=== PATIENT | female | born 1995 | race Caucasian/White ===

== ENCOUNTER → 2016-04-21 | Outpatient (CLI) | payer BC, OTHER ==
[~2016-04-21] MED LIST: AMPH10TA2 PO; CHOL20007 PO; LAMO25TA PO; LEVO1IUD VAGRING; LORA-741 PO; QUET5TAB PO; SERT1TAB68 PO; SERT50TA PO; TRAZ50TA35 PO
== END | disposition home or self-care (01) ==
LOC: C.PAPS 14:38
PROVIDERS: ATTEND Obstetrics & Gynecology
DX: Z01.419 Encounter for gynecological examination (general) (routine) without abnormal findings (principal)

== ENCOUNTER → 2016-04-25 | Outpatient (CLI) | payer OTHER | END | disposition home or self-care (01) | LOC: C.LAB1850 14:04 | PROVIDERS: ATTEND Psychiatry & Neurology Child & Adolescent Psychiatry | DX: F33.1 Major depressive disorder, recurrent, moderate (principal) ==

== ENCOUNTER 2016-05-05 13:34 | Inpatient (IN) | payer OTHER ==
[~2016-05-05] VITALS: Ht 165.1 cm; Wt 52.0 kg
[2016-05-05 14:10] LABS: URINE APPEARANCE CLEAR (CLEAR); URINE BILIRUBIN NEG (NEG); URINE COLOR YELLOW; URINE NITRITE NEG (NEG); URINE PH 5.5 (4.5-7.5); URINE SPECIFIC GRAVITY 1.012 (1.000-1.030); UROBILINOGEN NEG (NEG)
[2016-05-05 14:24] LABS: MANUAL MICROSCOPIC REQUIRED? NO; REVIEW REQ? NO
[2016-05-05 14:35] LABS: HEMATOCRIT 40.4 % (37-47); MEAN CORPUSCULAR HEMOGLOBIN 30.6 pg (25-34); MEAN CORPUSCULAR HGB CONC 35.6 g/dl (32-36); MEAN PLATELET VOLUME 9.9 fL (7.4-10.4); PLATELET COUNT 278 K/uL (130-400); WHITE BLOOD COUNT 6.15 K/uL (4.8-10.8)
[2016-05-05] MEDS ORDERED: LORA-741 PO (14:39)
[2016-05-05] MEDS ORDERED: TRAZ50TA35 PO (14:39)
[2016-05-05] MEDS ORDERED: AMPH10TA2 PO (14:39)
[2016-05-05] MEDS ORDERED: LAMO25TA PO (14:39)
[2016-05-05] MEDS ORDERED: CHOL20007 PO (14:39)
[2016-05-05] MEDS ORDERED: LEVO1IUD VAGRING (14:39)
[2016-05-05] MEDS ORDERED: SERT50TA PO (14:39)
[2016-05-05 14:43] LABS: BENZODIAZEPINE, URINE NEG (NEG); COCAINE,URINE NEG (NEG); PHENCYCLIDINE, URINE NEG (NEG)
[2016-05-05 14:52] LABS: BUN/CREATININE RATIO 15.2 (10-20); CALCIUM 9.3 mg/dl (8.5-10.1); CREATININE 0.94 mg/dl (0.60-1.20); POTASSIUM 3.7 mmol/L (3.5-5.1)
[2016-05-05 14:57] LABS: ACETAMINOPHEN < 2 ug/ml (10-30)
[2016-05-05 15:02] LABS: THYROID STIMULATING HORMONE 0.85 uIu/ml (0.300-4.500)
[2016-05-05] MEDS ORDERED: hydrOXYzine HCL 25 MG TAB PO PRN ×2 (15:45)
[2016-05-05] MEDS ORDERED: SODIUM CHLORIDE 0.65% NA SOLN 45 ML (OCEAN) PRN (15:45)
[2016-05-05] MEDS ORDERED: BISMUTH SUBSALICYLATE PER ML OMNICELL CHARGE PO PRN (15:45)
[2016-05-05] MEDS ORDERED: ALUMINUM/MAGNESIUM SUSP 30 ML UDC PO PRN (15:45)
[2016-05-05] MEDS ORDERED: TRAZODONE HCL 50 MG TAB PO PRN (15:45)
[2016-05-05] MEDS ORDERED: ACETAMINOPHEN 325 MG TAB PO PRN (15:45)
[2016-05-05] MEDS ORDERED: MAGNESIUM HYDROXIDE SUSP 30 ML UDC PO PRN (15:45)
[2016-05-05 16:19] VITALS: O2SAT 98
[2016-05-05 17:32] VITALS: BP 114/77; PULSE 76; TEMP 36.8; BMI 19.1
[2016-05-05 17:42] VITALS: BP 114/77; PULSE 76; TEMP 36.8; Ht 165.1 cm; Wt 52.0 kg
[2016-05-05] MEDS: AMPHETAMINE ASP/SULF/DEXTRAMPH 10 MG TAB PO SCH (20:44)
--- NOTE | 2016-05-05 21:15 | EMERGENCY ROOM VISIT NOTE ---
History Report prepared by Ashwin: Rola Vera Under the Supervision of: Dr. Floyd Teixeira M.D. First contact with patient: 13:42 Chief Complaint: MENTAL HEALTH EVALUATION Stated Complaint: BIPOLAR DISORDER BREAK DOWN History of Present Illness The patient is a 20 year old female who presents to the Emergency Room with complaints of worsening bipolar depression symptoms. She reports she would like to be seen inpatient at a mental health facility. She was seen inpatient about 4 years ago for her history of bipolar depression, anxiety and ADHD. The patient takes daily Lamictal, Zoloft and Adderall. She underwent some medication changes, approximately 4 weeks ago, and states she had to wean herself off Zoloft and start taking Lamictal. She reports she has been very sad and crying for the past 24 hours, stating "I don't think the medications are working". She admits to "wanting to ", but denies any intention of hurting herself. 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 Her parents are supportive of her wanting to be seen inpatient and her father is researching possible places where she could be treated. She denies any current physical complaints. She denies any chance of being . She admits to ETOH and Marijuana use but states she has not smoked Marijuana or drank alcohol since . Source of History: patient Onset: BRANCH CHIEF Position: other (global) Timing: worsening Modifying Factors (Worsening): other (recent medication changes) Note: The patient denies any current physical complaints. Review of Systems See HPI for pertinent positives & negatives. A total of 10 systems reviewed and were otherwise negative. Past Medical & Surgical Medical Problems: (1) ADHD (attention deficit hyperactivity disorder) (2) Anxiety (3) Bipolar depression Social History Smoking Status: Never Smoker Alcohol Use: occasionally Drug Use: marijuana Marital Status: single Housing Status: lives alone Occupation Status: [employer] student Current/Historical Medications Scheduled Amphetamine-Dextroamphetamine 10MG (Adderall 10MG), 10 MG PO BID Cholecalciferol (Vitamin D3), 1 TAB PO DAILY Lamotrigine (Lamictal), 50 MG PO QPM Sertraline (Zoloft), 50 MG PO DAILY Scheduled PRN Lorazepam (Ativan), 0.5 MG PO Q6H PRN for Anxiety Trazodone Hcl (Trazodone), 50 MG PO UD PRN for Sleep Miscellaneous Medications Levonorgestrel (Iud) (Eli), 1 VAGRING Allergies Coded Allergies: Penicillins (Verified Allergy, Intermediate, rash, 05/05/16) Physical Exam Vital Signs Date Time Temp Pulse Resp B/P Pulse Ox O2 Delivery O2 Flow Rate FiO2 05/05/16 13:37 37.0 92 18 126/80 100 Room Air Physical Exam Constitutional: Vital signs reviewed. Eyes: Pupils are equal round reactive to light. Conjunctiva are noninjected. ENT: Pharynx is clear without erythema or exudate. Mucous membranes are moist. Neck supple without meningeal signs. Respiratory: Clear to auscultation bilaterally. Breath sounds are equal bilaterally. Cardiovascular: Regular rate and rhythm. No rubs or gallops. GI: Soft, nondistended and nontender. Bowel sounds are present. Musculoskeletal: No peripheral edema. No lacerations. Integumentary: No cyanosis. Neurological: The patient is awake and alert. No focal deficits. Psychiatric: Depressed affect, tearful and anxious. Medical Decision & Procedures Laboratory Results 05/05/16 14:20 05/05/16 14:20 Test 05/05/16 14:00 05/05/16 14:20 Urine Color YELLOW Urine Appearance CLEAR (CLEAR) Urine pH 5.5 (4.5-7.5) Urine Specific [place] 1.012 (1.000-1.030) Urine Protein NEG (NEG) Urine Glucose (UA) NEG (NEG) Urine Ketones NEG (NEG) Urine Occult Blood NEG (NEG) Urine Nitrite NEG (NEG) Urine Bilirubin NEG (NEG) Urine Urobilinogen NEG (NEG) Urine Leukocyte Esterase NEG (NEG) Urine Test NEG (NEG) Urine Opiates Screen NEG (NEG) Urine Methadone, Qualitative NEG (NEG) Urine Barbiturates NEG (NEG) Urine Phencyclidine (PCP) Level NEG (NEG) Ur Amphetamine/Methamphetamine NEG (NEG) MDMA (Ecstasy) Screen NEG (NEG) Urine Benzodiazepines Screen NEG (NEG) Urine Cocaine Metabolite NEG (NEG) Urine Marijuana (THC) NEG (NEG) Red Blood Count 4.70 M/uL (4.2-5.4) Mean Corpuscular Volume 86.0 fL (80-100) Mean Corpuscular Hemoglobin 30.6 pg (25-34) Mean Corpuscular Hemoglobin Concent 35.6 g/dl (32-36) RDW Standard Deviation 39.2 fL (36.4-46.3) RDW Coefficient of Variation 12.4 % (11.5-14.5) Mean Platelet Volume 9.9 fL (7.4-10.4) Anion Gap 9.0 mmol/L (3-11) Est Creatinine Clear Calc Drug Dose 77.7 ml/min Estimated GFR () 100.5 Estimated GFR (Non- 86.7 BUN/Creatinine Ratio 15.2 (10-20) Calcium Level 9.3 mg/dl (8.5-10.1) Total Bilirubin 0.7 mg/dl (0.2-1) Direct Bilirubin 0.2 mg/dl (0-0.2) Aspartate Amino Transf (AST/SGOT) 19 U/L (15-37) Alanine Aminotransferase (ALT/SGPT) 17 U/L (12-78) Alkaline Phosphatase 74 U/L (45-117) Total Protein 7.5 gm/dl (6.4-8.2) Albumin 4.4 gm/dl (3.4-5.0) Thyroid Stimulating Hormone (TSH) 0.850 uIu/ml (0.300-4.500) Salicylates Level < 1.7 mg/dl (2.8-20) Acetaminophen Level < 2 ug/ml (10-30) Ethyl Alcohol mg/dL < 3.0 mg/dl (0-3) Laboratory results as reviewed by me. ED Course 1345: The patient was evaluated in room A5. A complete history and physical exam was performed. 1509: Labs have come back on the patient. I informed our psychiatric case management associate she is ready to be evaluated by Psychiatry. 1555: I discussed the patients case with Haydee, [address] [place] [address] Psychiatric Care Floor. The patient will be further evaluated. Medical Decision This is a 20-year-old female who presents for mental health evaluation. I did perform a limited focused review of portions of the patient's old chart on the electronic medical record. The patient has had no recent pertinent visits to this hospital. I did evaluate the patient as noted above. The patient is presenting with depression and suicidal ideation. I did order and review the patient's blood work as noted in the electronic medical record. I did medically clear the patient. She was evaluated by mental health. She was accepted to 3 S. inpatient psychiatric unit. Consults Time Called: 1550 [facility] Returned Call: [phone] I discussed the patients case with Haydee [address] [place] [address] Psychiatric Care Floor. The patient will be further evaluated. Impression Primary Impression: Mood disorder Additional Impression: Suicidal ideation Scribe Attestation The scribe's documentation has been prepared under my direct and personally reviewed by me in its entirety. I confirm that the note above accurately reflects all work, treatment, procedures, and medical decision making performed by me. Departure Information Dispostion Mental Health Acute Care (The patient will be further evaluated by [address] [place] [address] 's Psychiatric Care Floor) Referrals No Doctor, Assigned (PCP) Patient Instructions My [facility] Problem Qualifiers
[2016-05-06 06:59] VITALS: BP_SYST 89; BP_SYST 95; BP_DIAS 54; BP_DIAS 59; PULSE 71; PULSE 99; TEMP 37.1
[2016-05-06] MEDS: AMPHETAMINE ASP/SULF/DEXTRAMPH 10 MG TAB PO SCH (09:00)
[2016-05-06] MEDS: SERTRALINE HCL 50 MG TAB PO SCH (09:09)
[2016-05-06] MEDS: CHOLECALCIFEROL 1000 INTER.UNIT TAB PO SCH (09:09)
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
--- NOTE | 2016-05-06 12:48 | Psychiatric History & Physical ---
History Identifying Data Juana Faith is a 20-year-old female who currently lives alone in [place]. Juana Faith was admitted on a 201 voluntary commitment. The patient is admitted from the emergency department after a therapy intake at [facility] was cancelled. Chief Complaint "I need to feel more stable". History of Present Illness Juana relates not feeling in control of her emotions. She was started on Lamictal 3 weeks ago for a relatively new diagnosis of bipolar disorder. She has been maintained on Zoloft (doses vary by season) since a 2013 inpatient hospitalization. She feels this fall she waited too long to restart it and then tried adding lightbox therapy. Her outpatient psychiatrist started tapering Zoloft during early Lamictal trial and she continued to feel more emotional. Juana describes her baseline mood as "blah" in that she feels rather numb and low energy. This alternates with periods of time of a few hours where she feels hypomania--like waking up in the middle of the night day of admission to clean/rearrange drawers for a few hours. She denies a particular stressor in that she like school and her clinical work. She denies periods of euphoria or impulsivity other than purchasing a tablet on [employer]. She has a stable relationship with a boyfriend of 8 months who attends college in [place] and maintains a job at [employer]. She has had brief periods of irritability where she got into an argument with a girl and almost threw her laptop at her. This is very unusual for the patient. She has had suicidal thoughts, mainly passive thoughts of wishing she weren't alive in the 3 days leading up to admission and did contact her outpatient psychiatrist who resumed Zoloft. Sleep has varied a bit, appetite is baseline, concentration good when she takes Adderall. She only takes it on school days and there is no history of misuse or diversion. It does cause some mild increase in anxiety but benefits outweigh side effects for her attention. Juana can feel hopeless at times and seems like there are some conflicts related to blended family issues. Juana denies violence to self or others in the past 6 months. Past Psychiatric History Current OP Treatment: psychiatrist (Dr. Ramirez), therapist ([facility] intake pending, would prefer a different provider) Prior Psych Hospitalizations: other ([facility] in 2013--depression with passive SI) no history of cutting or suicide attempts Past Medical/Surgical History History of Obesity: No History of HTN: No History of Diabetes: No History of Heart Disease: No History of Dyslipidemia: No History of Concussion/Seizure: No Problem List: Allergies Allergies: Coded Allergies: Penicillins (Verified Allergy, Intermediate, rash, 05/05/16) Home Medications Scheduled Amphetamine-Dextroamphetamine 10MG (Adderall 10MG), 10 MG PO BID Cholecalciferol (Vitamin D3), 1 TAB PO DAILY Lamotrigine (Lamictal), 50 MG PO QPM Sertraline (Zoloft), 50 MG PO DAILY Scheduled PRN Lorazepam (Ativan), 0.5 MG PO Q6H PRN for Anxiety Trazodone Hcl (Trazodone), 50 MG PO UD PRN for Sleep Miscellaneous Medications Levonorgestrel (Iud) (Eli), 1 VAGRING Family History History of Obesity: No History of HTN: Yes History of Diabetes: No History of Heart Disease: Yes History of Dyslipidemia: No family really doesn't discuss psychiatric issues--none to her knowledge Alcohol Use Alcohol Use In Past 12 Months: Yes will have 2 mixed drinks 2-3 times a month Substance History Substance Use Past 12 Months: Hx of Inhalent Use: No Hx of Organic Substance Use: Yes (1 bowl, 1 or 2x month, last time used was 2 months ago) Hx of Illegal/Street Drug Use: No Hx of Over the Counter Med Use: No Hx of Prescription Med Use: No (as prescribed) Personal History Parental Status: (age 10, father is remarried (2 step sibs), mother is dating a man with 2 older children) Education: graduated from high school, 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 Examination Physical Examination A physical exam was performed in the ER by Dr. Teixeira prior to admission to the unit. I accept that physical as correct/medical clearance for the inpatient physical exam. Vital Signs Vital Signs Past 12 Hours Date Time Temp Pulse Resp B/P Pulse Ox O2 Delivery O2 Flow Rate FiO2 05/06/16 06:59 37.1 71 16 95/59 99 89/54 Laboratory Results Last 24 Hours Test 05/05/16 14:00 05/05/16 14:20 Urine Color YELLOW Urine Appearance CLEAR Urine pH 5.5 Urine Specific [place] 1.012 Urine Protein NEG Urine Glucose (UA) NEG Urine Ketones NEG Urine Occult Blood NEG Urine Nitrite NEG Urine Bilirubin NEG Urine Urobilinogen NEG Urine Leukocyte Esterase NEG Urine Test NEG Urine Opiates Screen NEG Urine Methadone, Qualitative NEG Urine Barbiturates NEG Urine Phencyclidine (PCP) Level NEG Ur Amphetamine/Methamphetamine NEG MDMA (Ecstasy) Screen NEG Urine Benzodiazepines Screen NEG Urine Cocaine Metabolite NEG Urine Marijuana (THC) NEG White Blood Count 6.15 K/uL Red Blood Count 4.70 M/uL Hemoglobin 14.4 g/dL Hematocrit 40.4 % Mean Corpuscular Volume 86.0 fL Mean Corpuscular Hemoglobin 30.6 pg Mean Corpuscular Hemoglobin Concent 35.6 g/dl RDW Standard Deviation 39.2 fL RDW Coefficient of Variation 12.4 % Platelet Count 278 K/uL Mean Platelet Volume 9.9 fL Sodium Level 141 mmol/L Potassium Level 3.7 mmol/L Chloride Level 109 mmol/L Carbon Dioxide Level 23 mmol/L Anion Gap 9.0 mmol/L Blood Urea Nitrogen 14 mg/dl Creatinine 0.94 mg/dl Est Creatinine Clear Calc Drug Dose 77.7 ml/min Estimated GFR () 100.5 Estimated GFR (Non- 86.7 BUN/Creatinine Ratio 15.2 Random Glucose 85 mg/dl Calcium Level 9.3 mg/dl Total Bilirubin 0.7 mg/dl Direct Bilirubin 0.2 mg/dl Aspartate Amino Transf (AST/SGOT) 19 U/L Alanine Aminotransferase (ALT/SGPT) 17 U/L Alkaline Phosphatase 74 U/L Total Protein 7.5 gm/dl Albumin 4.4 gm/dl Thyroid Stimulating Hormone (TSH) 0.850 uIu/ml Salicylates Level < 1.7 mg/dl Acetaminophen Level < 2 ug/ml Ethyl Alcohol mg/dL < 3.0 mg/dl Mental Examination During interview pt is: alert and oriented Appearance: appropriately dressed, appropriately groomed Eye contact is: good Motor behavior is: no abnormal motor movements Speech: normal in rate, rhythm & volume Affect: mood congruent Mood is: depressed Thought process: clear, coherent Thought content: reality based without delusions Suicidal thought are: denied Homicidal thoughts are: denied Hallucinations: denies auditory, denies visual Cognition: memory grossly intact, attention grossly intact, language grossly intact Intelligence estimated to be: consistent with level of education Insight: limited Judgement: limited Impression / Recommendations Impression 20 yo female with history of recurrent depression who presents with brief periods of hypomania consistent with outpatient diagnosis of bipolar II. Decompensating at beginning of Lamictal trial. The patient is admitted to [facility] ([facility] mental health unit) on q 15 min checks (behavioral with suicide precautions) for safety. The patient will participate in group, recreational and milieu therapies and will be offered additional individual and family sessions as clinically appropriate. Inventory Assets Strengths: intelligence, able to maintain grades/own apartment Needs: outpatient therapist Risk Factors Assessment : Yes /single/: Yes Higher / Fall in social status: No Access to guns: No Health problems: No Mental Health Diagnoses: Yes Substance use disorders: No Previous attempt: No Family history of suicide: No Previous psychiatric stay: Yes Smoker: No Protective Factors Assessment Employed: No Stable relationships: Yes Recommendations (1) Bipolar depression LM updating Dr. Ramirez will maintain on Zoloft 50 mg for now, lamictal cannot go up to 100 mg for another week due to risk of Phillip's Patrick reaction Risks/benefits/alternative treatments were reviewed re: antipsychotics for bipolar depression. Discussion included but was not limited to metabolic side effects, risks of TD and suicidal thoughts. Baseline AIMS=0. Fasting glucose and lipid panel ordered for baseline monitoring. Will start Seroquel 50 mg this hs, make trazodone prn due to risks of combined sedation. (2) ADHD (attention deficit hyperactivity disorder) patient states only takes Adderall on school days and doesn't see a need while inpatient. CPT Code Initial Hospital Care: [id number]
[2016-05-06] MEDS: QUETIAPINE FUMARATE 25 MG TAB PO SCH (20:59)
[2016-05-07 06:45] VITALS: BP_SYST 93; BP_SYST 96; BP_DIAS 57; BP_DIAS 58; PULSE 77; PULSE 94; TEMP 36.7
[2016-05-07 07:51] LABS: CHOLESTEROL/HDL RATIO 2.3
[2016-05-07] MEDS: SERTRALINE HCL 50 MG TAB PO SCH (08:36)
[2016-05-07] MEDS: CHOLECALCIFEROL 1000 INTER.UNIT TAB PO SCH (08:36)
--- NOTE | 2016-05-07 11:34 | Psychiatric Progress Notes ---
Progress Note Date of Service May 07, 2016. Interval History 20 yo female admit on 05/05/16 on 201 commitment for recent diagnosis of bipolar disorder, worsening SI during Zoloft taper. Chief Complaint "I slept". Subjective Patient was seen & assessed interval progress reviewed with nursing. 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 She had a meeting with her mother and expects visit with father this weekend. Mild sedation this am. Requesting iron panel, reviewed H&H normal. She does plan to take a few days off of school and return home to [place] for family support through next weekend (upon discharge). Review of Systems Psych: denies symptoms other than stated above Constitutional: fatigue Cardiovascular: denied GI: denied Neurologic: denied Remainder of 10 body systems also reviewed and denied other than noted above. Sleep Information Total Hours of Sleep: 7.25 Meal Information Percent of Breakfast Consumed: 100 Percent of Lunch Consumed: 100 Percent of Dinner Consumed: 100 Mental Status Exam During interview pt is: alert and oriented Appearance: appropriately dressed, appropriately groomed Eye contact is: good Motor behavior is: no abnormal motor movements Speech: normal in rate, rhythm & volume Affect: mood congruent Mood is: depressed Thought process: clear, coherent Thought content: reality based without delusions Suicidal thought are: denied Homicidal thoughts are: denied Hallucinations: denies auditory, denies visual Cognition: memory grossly intact, attention grossly intact, language grossly intact Intelligence estimated to be: consistent with level of education Insight: limited Judgement: limited Impression 20 yo female with history of recurrent depression who presents with brief periods of hypomania consistent with outpatient diagnosis of bipolar II. Decompensating at beginning of Lamictal trial when Zoloft tapered. Plan (1) Bipolar depression 05/06/16--LM updating Dr. Ramirez will maintain on Zoloft 50 mg for now, lamictal cannot go up to 100 mg for another week due to risk of Phillip's Patrick reaction Risks/benefits/alternative treatments were reviewed re: antipsychotics for bipolar depression. Discussion included but was not limited to metabolic side effects, risks of TD and suicidal thoughts. Baseline AIMS=0. Fasting glucose and lipid panel ordered for baseline monitoring. Will start Seroquel 50 mg this hs, make trazodone prn due to risks of combined sedation. 05/07/16--tolerating Seroquel, declines titration today. Metabolic labs reviewed /WNL. (2) ADHD (attention deficit hyperactivity disorder) patient states only takes Adderall on school days and doesn't see a need while inpatient. Discharge / Aftercare Planning Primary Care Physician: Name: Dr Diallo Psychiatrist: Name: Dr Ramirez Phone Number: [phone] Date of Appointment: May 26, 2016 Therapist: Name: [facility] Phone Number: [phone] Appointment Notes: [address] [place] [facility] [place] [address] Visit Code E&M Code: 12078 Inventory Assets Strengths: intelligence, able to maintain grades/own apartment Needs: outpatient therapist Risk Factors Assessment : Yes /single/: Yes Higher / Fall in social status: No Health problems: No Mental Health Diagnoses: Yes Substance use disorders: No Previous attempt: No Family history of suicide: No Previous psychiatric stay: Yes Smoker: No Protective Factors Assessment Employed: No Stable relationships: Yes Data Vital Signs Last 24 Hrs: Date Time Temp Pulse Resp B/P Pulse Ox O2 Delivery O2 Flow Rate FiO2 05/07/16 06:45 36.7 77 16 96/57 94 93/58 Meds Administered Last 24 Hrs: Meds Administered (Past 24Hrs) Medications (Trade) Dose Ordered Sig/Bee Route Start Time Stop Time Status Last Admin Dose Admin Lamotrigine (Lamictal Tab) 50 mg QPM PO 05/05/16 21:00 06/04/16 20:59 05/06/16 20:59 50 MG Sertraline HCl (Zoloft Tab) 50 mg DAILY PO 05/06/16 09:00 06/05/16 08:59 05/07/16 08:36 50 MG Trazodone HCl (Desyrel Tab) 50 mg HS PRN PO 05/05/16 15:45 06/04/16 15:44 05/05/16 21:02 50 MG Cholecalciferol (Vitamin D Tab) 2,000 inter.unit DAILY PO 05/06/16 09:00 06/05/16 08:59 05/07/16 08:36 2,000 INTER.UNIT Quetiapine Fumarate (seroQUEL TAB) 50 mg HS PO 05/06/16 22:00 06/05/16 21:59 05/06/16 20:59 50 MG Lab Results Last 24 Hrs: Last 24 Hours Test 05/07/16 07:13 05/07/16 09:33 Fasting Glucose 82 mg/dl Triglycerides Level 45 mg/dl Cholesterol Level 161 mg/dl HDL Cholesterol 70 mg/dl LDL Cholesterol, Calculated 82 mg/dl VLDL Cholesterol, Calculated 9 mg/dl Cholesterol/HDL Ratio 2.3
[2016-05-07 12:01] LABS: TOTAL IRON BINDING CAPACITY 305 mcg/dl (250-450)
[2016-05-07] MEDS: QUETIAPINE FUMARATE 25 MG TAB PO SCH (21:59)
[2016-05-08 06:48] VITALS: BP_SYST 103; BP_SYST 114; BP_DIAS 65; BP_DIAS 73; PULSE 73; PULSE 88; TEMP 36.9
[2016-05-08] MEDS: SERTRALINE HCL 50 MG TAB PO SCH (09:03)
[2016-05-08] MEDS: CHOLECALCIFEROL 1000 INTER.UNIT TAB PO SCH (09:03)
[2016-05-08] MEDS ORDERED: SERTRALINE HCL 50 MG TAB PO ONE (13:15)
--- NOTE | 2016-05-08 14:42 | Psychiatric Progress Notes ---
Progress Note Date of Service May 08, 2016. Interval History 20 yo female admit on 05/05/16 on 201 commitment for recent diagnosis of bipolar disorder, worsening SI during Zoloft taper. Chief Complaint "I'm sort of a mess today", tearful. Subjective Patient was seen & assessed interval progress reviewed with nursing. Clearly has ongoing significant anxiety. Seems like triggered by groups as feels she has a plan in her mind to get better and would be better addressed outside of the hospital. She hasn't been able to have a bowel movement for 4 days. Declines miralax, says it's sort of a social phobia thing in that she only goes at home. Describes significant health anxiety related to some material she is learning in class. Worries that fecal retention can result in cancer based on comments of a teacher. She now reports that didn't take Zoloft over the summer and attributes "falling apart" to the weather being rainy. Last winter she did well on 150 mg of Zoloft. Review of Systems Psych: denies symptoms other than stated above Constitutional: tired Cardiovascular: denied GI: denied other than constipation above. Neurologic: denied Remainder of 10 body systems also reviewed and denied other than noted above. Sleep Information Total Hours of Sleep: 6.50 Meal Information Percent of Breakfast Consumed: 90 Percent of Lunch Consumed: 75 Percent of Dinner Consumed: 95 Mental Status Exam During interview pt is: alert and oriented Appearance: appropriately dressed, appropriately groomed Eye contact is: good Motor behavior is: no abnormal motor movements Speech: normal in rate, rhythm & volume Affect: depressed, tearful Mood is: depressed Thought process: clear, coherent Thought content: reality based without delusions Suicidal thought are: denied Homicidal thoughts are: denied Hallucinations: denies auditory, denies visual Cognition: memory grossly intact, attention grossly intact, language grossly intact Intelligence estimated to be: consistent with level of education Insight: limited Judgement: limited Impression 20 yo female with history of recurrent depression who presents with brief periods of hypomania consistent with outpatient diagnosis of bipolar II. Decompensating at beginning of Lamictal trial when Zoloft tapered, likely due to exacerbation of social anxiety. Continued Inpatient Care Continued inpatient hospitalization is medically necessary for ongoing monitoring and safety. Plan (1) Bipolar depression 05/06/16--LM updating Dr. Ramirez will maintain on Zoloft 50 mg for now, lamictal cannot go up to 100 mg for another week due to risk of Hpillip's Patrick reaction Risks/benefits/alternative treatments were reviewed re: antipsychotics for bipolar depression. Discussion included but was not limited to metabolic side effects, risks of TD and suicidal thoughts. Baseline AIMS=0. Fasting glucose and lipid panel ordered for baseline monitoring. Will start Seroquel 50 mg this hs, make trazodone prn due to risks of combined sedation. 05/07/16--tolerating Seroquel, declines titration today. Metabolic labs reviewed /WNL. 05/08/16--declined trial of a different SSRI as "so many changes", will retitrate Zoloft 100 mg tomorrow (will dose total of 75 mg on 05/08/16). (2) Generalized anxiety disorder with social phobia, outpatient therapy with a cognitive component is recommended. retitrating Zoloft. (3) ADHD (attention deficit hyperactivity disorder) patient states only takes Adderall on school days and doesn't see a need while inpatient. Discharge / Aftercare Planning Primary Care Physician: Name: Dr Diallo Psychiatrist: Name: Dr Ramirez Phone Number: [phone] Date of Appointment: May 26, 2016 Therapist: Name: [facility] Phone Number: [phone] Appointment Notes: [address] [facility] [place] [address] Visit Code E&M Code: 74273 Inventory Assets Strengths: intelligence, able to maintain grades/own apartment Needs: outpatient therapist Risk Factors Assessment : Yes /single/: Yes Higher / Fall in social status: No Health problems: No Mental Health Diagnoses: Yes Substance use disorders: No Previous attempt: No Family history of suicide: No Previous psychiatric stay: Yes Smoker: No Protective Factors Assessment Employed: No Stable relationships: Yes Data Vital Signs Last 24 Hrs: Date Time Temp Pulse Resp B/P Pulse Ox O2 Delivery O2 Flow Rate FiO2 05/08/16 06:48 36.9 73 16 103/65 88 114/73 Meds Administered Last 24 Hrs: Meds Administered (Past 24Hrs) Medications (Trade) Dose Ordered Sig/Bee Route Start Time Stop Time Status Last Admin Dose Admin Quetiapine Fumarate (seroQUEL TAB) 50 mg HS PO 05/06/16 22:00 06/05/16 21:59 05/07/16 21:59 50 MG Sertraline HCl (Zoloft Tab) 25 mg ONE ONCE PO 05/08/16 13:15 05/08/16 13:16 DC 05/08/16 13:41 25 MG
[2016-05-08] MEDS: LORAZEPAM 0.5 MG TAB PO PRN (17:22)
[2016-05-08] MEDS: DOCUSATE SODIUM 100 MG CAP PO SCH (21:39)
[2016-05-08] MEDS: QUETIAPINE FUMARATE 25 MG TAB PO SCH (21:39)
[2016-05-09 06:59] VITALS: BP_SYST 81; BP_SYST 95; BP_DIAS 50; BP_DIAS 61; PULSE 80; PULSE 98; TEMP 36.8
[2016-05-09] MEDS: DOCUSATE SODIUM 100 MG CAP PO SCH (08:24)
[2016-05-09] MEDS: CHOLECALCIFEROL 1000 INTER.UNIT TAB PO SCH (08:25)
[2016-05-09] MEDS: LORAZEPAM 0.5 MG TAB PO PRN (08:28)
[2016-05-09] MEDS ORDERED: SERTRALINE HCL 100 MG TAB PO SCH (09:00)
[2016-05-09] MEDS ORDERED: SERT1TAB68 PO (10:08)
[2016-05-09] MEDS ORDERED: QUET5TAB PO (10:08)
--- NOTE | 2016-05-09 10:18 | Discharge Instructions ---
Discharge Information Report Includes Report will include the: Discharge Instructions & Summary Admission Admission Date / Time: May 05, 2016 at 15:41 Reason for Admission: Bipolar Depression Discharge Discharge Diagnosis / Problem: Bipolar depression Condition at Discharge: Good Discharge Goals Goal(s): Decrease discomfort, Improve disease control, Prevent Disease Progression Activity Recommendations Activity Limitations: resume your previous activity . Instructions / Follow-Up Instructions / Follow-Up . SPECIAL CARE INSTRUCTIONS: 1. Follow through with your scheduled aftercare appointments. If unable to keep an appointment, please call to reschedule. 2. Take your medication only as prescribed. Medication should not be changed or stopped without the approval of your doctor. In the event of worsening symptoms or concerns about side effects, contact your doctor immediately. 3. Utilize new healthy coping skills, anger management skills, and stress management skills learned during your hospitalization. Journal feelings and process them with a support person. Identify stressors or situations that may result in relapse, deterioration or inappropriate behaviors and develop a plan to deal with those issues. 4. If your coping skills are ineffective and you are in crisis, contact your outpatient providers for direction. If unable to reach your providers, please call the CAN HELP LINE AT or go to the closest Emergency Room. 5. Avoid alcohol and un-prescribed drugs. 6. You have been provided with the Mental Health Advance Directives Pamphlet for your review. AFTERCARE APPOINTMENTS: * Please call your insurance company prior to your scheduled appointment to confirm your aftercare providers are covered. Take your insurance information to your appointments. . Discharge / Aftercare Planning Primary Care Physician: Name: Dr Diallo at [facility] Phone Number: [phone] Appointment Notes: as needed Psychiatrist: Name: Dr Ramirez Phone Number: [phone] Date of Appointment: May 26, 2016 Therapist: Name Of Therapist: [facility] Phone Number: [phone] Appointment Comments: [address] [facility] [place] [address] . Follow-Up Care Plan for Follow-Up Care: The patient will have prompt follow up with both therapist and psychiatric prescriber Current Hospital Diet Patient's current hospital diet: Regular Diet Discharge Diet Recommended Diet: Regular Diet Procedures Procedures Performed: No Pending Studies Pending Studies at Discharge: No Medical Emergencies . Who to Call and When: Medical Emergencies: For questions or emergencies related to your hospital stay, please contact the Inpatient Behavioral Health Unit at [phone]. A psychiatric arnp is on-call 17/10 for the Behavioral Health Unit for emergencies At any time you feel your situation is an emergency, you may also call 911 immediately. . Non-Emergent Contact Non-Emergency issues call your: Psychiatrist, Therapist Advance Directives Existing Advance Directive: No Do You Have an Existing Mental: No Existing Living Will: No Existing Power of Wood Fence Installer: No Advance Directives Info Given: To Pt/S.O. Discharge Summary Admission HPI Per the Admitting provider: Juana relates not feeling in control of her emotions. She was started on Lamictal 3 weeks ago for a relatively new diagnosis of bipolar disorder. She has been maintained on Zoloft (doses vary by season) since a 2013 inpatient hospitalization. She feels this fall she waited too long to restart it and then tried adding lightbox therapy. Her outpatient psychiatrist started tapering Zoloft during early Lamictal trial and she continued to feel more emotional. Juana describes her baseline mood as "blah" in that she feels rather numb and low energy. This alternates with periods of time of a few hours where she feels hypomania--like waking up in the middle of the night day of admission to clean/rearrange drawers for a few hours. She denies a particular stressor in that she like school and her clinical work. She denies periods of euphoria or impulsivity other than purchasing a tablet on [employer]. She has a stable relationship with a boyfriend of 8 months who attends college in [place] and maintains a job at [employer]. She has had brief periods of irritability where she got into an argument with a girl and almost threw her laptop at her. This is very unusual for the patient. She has had suicidal thoughts, mainly passive thoughts of wishing she weren't alive in the 3 days leading up to admission and did contact her outpatient psychiatrist who resumed Zoloft. Sleep has varied a bit, appetite is baseline, concentration good when she takes Adderall. She only takes it on school days and there is no history of misuse or diversion. It does cause some mild increase in anxiety but benefits outweigh side effects for her attention. Juana can feel hopeless at times and seems like there are some conflicts related to blended family issues. Juana denies violence to self or others in the past 6 months. Admission Exam Per the Admitting provider: Please see attached H&P Hospital Course (1) Bipolar depression 05/06/16--LM updating Dr. Ramirez will maintain on Zoloft 50 mg for now, lamictal cannot go up to 100 mg for another week due to risk of Phillip's Patrick reaction Risks/benefits/alternative treatments were reviewed re: antipsychotics for bipolar depression. Discussion included but was not limited to metabolic side effects, risks of TD and suicidal thoughts. Baseline AIMS=0. Fasting glucose and lipid panel ordered for baseline monitoring. Will start Seroquel 50 mg this hs, make trazodone prn due to risks of combined sedation. 05/07/16--tolerating Seroquel, declines titration today. Metabolic labs reviewed /WNL. 05/08/16--declined trial of a different SSRI as "so many changes", will retitrate Zoloft 100 mg tomorrow (will dose total of 75 mg on 05/08/16). (2) Generalized anxiety disorder with social phobia, outpatient therapy with a cognitive component is recommended. retitrating Zoloft. (3) ADHD (attention deficit hyperactivity disorder) patient states only takes Adderall on school days and doesn't see a need while inpatient. Risk Factors Assessment : Yes /single/: Yes Higher / Fall in social status: No Health problems: No Mental Health Diagnoses: Yes Substance use disorders: No Previous attempt: No Family history of suicide: No Previous psychiatric stay: Yes Smoker: No Protective Factors Assessment Employed: No Stable relationships: Yes Day of Discharge Assessment COURSE OF HOSPITALIZATION: During the patient's 4 day stay, Zoloft was restarted getting to 100 mg daily. She was continued on Lamictal 50 mg daily, when necessary trazodone and Ativan, but Adderall held during the hospitalization. She tolerated these without side effect. During the patient' s stay, she denied any further suicidal ideation. 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 Family meeting was held with patient's mother and mother's boyfriend Fran. They were very supportive of patient processed some of her stressors including the fact that her biological father, who has remarried, is spending most of his attention on his new family and not on them. They have dealt with this by distancing themselves. The patient felt that her deterioration was in part related to the fact that she was taken off Zoloft while initiating Lamictal therapy. Since restarting the Zoloft she has started to feel better although does have some anxiety moving forward about having missed some school. During her stay her condition generally improved, she was without suicidal thinking, and was forward focused. DAY OF DISCHARGE ASSESSMENT: Today the patient is requesting discharge. 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 She admits to some anxiety about leaving a supportive environment but feels sure that she'll be able to proceed in school with success. She will be going home to be with her parents for a few days before returning to school. Today she is casually and appropriately dressed and groomed. Eye contact is good. Affect is restricted but able to smile at times. Speech is of normal rate volume and tone. Thoughts are organized and goal directed and without evidence of thought disorder. Recent and remote memory are intact per conversation. Intelligence is estimated to be average. Insight and judgment are improved over admission. Laboratory 05/05/16 14:20 05/05/16 14:20 Test 05/05/16 14:00 05/05/16 14:20 05/07/16 07:13 Urine Color YELLOW Urine Appearance CLEAR (CLEAR) Urine pH 5.5 (4.5-7.5) Urine Specific [place] 1.012 (1.000-1.030) Urine Protein NEG (NEG) Urine Glucose (UA) NEG (NEG) Urine Ketones NEG (NEG) Urine Occult Blood NEG (NEG) Urine Nitrite NEG (NEG) Urine Bilirubin NEG (NEG) Urine Urobilinogen NEG (NEG) Urine Leukocyte Esterase NEG (NEG) Urine Test NEG (NEG) Urine Opiates Screen NEG (NEG) Urine Methadone, Qualitative NEG (NEG) Urine Barbiturates NEG (NEG) Urine Phencyclidine (PCP) Level NEG (NEG) Ur Amphetamine/Methamphetamine NEG (NEG) MDMA (Ecstasy) Screen NEG (NEG) Urine Benzodiazepines Screen NEG (NEG) Urine Cocaine Metabolite NEG (NEG) Urine Marijuana (THC) NEG (NEG) Red Blood Count 4.70 M/uL (4.2-5.4) Mean Corpuscular Volume 86.0 fL (80-100) Mean Corpuscular Hemoglobin 30.6 pg (25-34) Mean Corpuscular Hemoglobin Concent 35.6 g/dl (32-36) RDW Standard Deviation 39.2 fL (36.4-46.3) RDW Coefficient of Variation 12.4 % (11.5-14.5) Mean Platelet Volume 9.9 fL (7.4-10.4) Anion Gap 9.0 mmol/L (3-11) Est Creatinine Clear Calc Drug Dose 77.7 ml/min Estimated GFR () 100.5 Estimated GFR (Non- 86.7 BUN/Creatinine Ratio 15.2 (10-20) Calcium Level 9.3 mg/dl (8.5-10.1) Total Bilirubin 0.7 mg/dl (0.2-1) Direct Bilirubin 0.2 mg/dl (0-0.2) Aspartate Amino Transf (AST/SGOT) 19 U/L (15-37) Alanine Aminotransferase (ALT/SGPT) 17 U/L (12-78) Alkaline Phosphatase 74 U/L (45-117) Total Protein 7.5 gm/dl (6.4-8.2) Albumin 4.4 gm/dl (3.4-5.0) Thyroid Stimulating Hormone (TSH) 0.850 uIu/ml (0.300-4.500) Salicylates Level < 1.7 mg/dl (2.8-20) Acetaminophen Level < 2 ug/ml (10-30) Ethyl Alcohol mg/dL < 3.0 mg/dl (0-3) Fasting Glucose 82 mg/dl (70-99) Iron Level 106 mcg/dl (35-150) Total Iron Binding Capacity 305 mcg/dl (250-450) Triglycerides Level 45 mg/dl (0-150) Cholesterol Level 161 mg/dl (0-200) HDL Cholesterol 70 mg/dl LDL Cholesterol, Calculated 82 mg/dl VLDL Cholesterol, Calculated 9 mg/dl Cholesterol/HDL Ratio 2.3 Total Time Total Time Spent (min): Greater than 30 minutes Total Time Included: examination of the patient, discharge planning, medication reconciliation, communication with other providers Tobacco Cessation at Discharge FDA approved Prescription: non-smoker
== END 2016-05-09 12:52 | disposition home or self-care (01) | DRG 885 ==
LOC: ENRESERVTM → ENRESERVDT → C.EDB 13:36 → C.MHU 15:41
PROVIDERS: ADMIT Psychiatry & Neurology Child & Adolescent Psychiatry; ATTEND Psychiatry & Neurology Child & Adolescent Psychiatry
DX: F31.9 Bipolar disorder, unspecified (principal); R45.851 Suicidal ideations; F90.9 Attention-deficit hyperactivity disorder, unspecified type; F41.1 Generalized anxiety disorder; Z79.899 Other long term (current) drug therapy